=== PATIENT | female | born 1995 | race American Indian/Alaskan Native ===

== ENCOUNTER 2016-10-17 21:23 | Emergency (ER) | payer MEDICAID ==
[2016-10-17 22:12] LABS: Basophils % (Auto) 0.3 % (0.0-1.8); Eosinophils % (Auto) 0.4 % (0.0-4.3); Hematocrit 33.8 % (30.3-42.9); Hemoglobin 11.5 gm/dl (10.1-14.3); Mean Corpuscular HGB Conc 34 % (30-34); Mean Corpuscular Hemoglobin 28 pg (28-32); Mean Corpuscular Volume 82 fl (79-97); Platelet Count 192 K/mm3 (140-440); Red Blood Count 4.15 M/mm3 (3.65-5.03); Red Cell Distribution Width 16.1 % (13.2-15.2); White Blood Count 5.8 K/mm3 (4.5-11.0)
[2016-10-17 22:51] LABS: Bilirubin,Urine NEG (Negative); Blood,Urine MOD (Negative); Ketones,Urine TR mg/dL (Negative); Leukocyte Esterase,Urine SM (Negative); Mucus,Urine FEW /HPF; Nitrite,Urine NEG (Negative); RBC,Urine < 1.0 /HPF (0.0-6.0); Urobilinogen,Urine < 2.0 mg/dL (<2.0)
--- NOTE | 2016-10-18 01:04 | Ultrasound Report ---
FINAL REPORT PROCEDURE: US OB TRANSVAGINAL TECHNIQUE: Real-time transvaginal sonography of the uterus, placenta, amniotic fluid, adnexa, and fetus was performed with image documentation. Measurements were obtained to determine age/size. M-mode Doppler was used to document heartbeat. CPT 23778 HISTORY: vaginal bleeding COMPARISON: No prior studies are available for comparison. FINDINGS: CRL: 6mm, which corresponds to a gestational age of: 6weeks, 3 days. Yolk Sac: Normal. Embryonic Cardiac Activity: 123 beats per minute Gestational Sac: Normal. There is a subchorionic hematoma measuring 3.3 x 1.6 x 1.1 centimeters. Right Ovary: Suboptimal visualization. Left Ovary: There is a 2.4 centimeter cyst. Estimated delivery date: 06/19/2017 Comment: Complete anatomic survey at 18-20 weeks suggested. IMPRESSION: 1. Single living intrauterine gestation at approximately 6 weeks 3 days 2. EDC by US 06/19/2017.
--- NOTE | 2016-10-18 01:04 | Ultrasound Report ---
FINAL REPORT PROCEDURE: US OB TRANSVAGINAL TECHNIQUE: Real-time transvaginal sonography of the uterus, placenta, amniotic fluid, adnexa, and fetus was performed with image documentation. Measurements were obtained to determine age/size. M-mode Doppler was used to document heartbeat. CPT 39963 HISTORY: vaginal bleeding COMPARISON: No prior studies are available for comparison. FINDINGS: CRL: 6mm, which corresponds to a gestational age of: 6weeks, 3 days. Yolk Sac: Normal. Embryonic Cardiac Activity: 123 beats per minute Gestational Sac: Normal. There is a subchorionic hematoma measuring 3.3 x 1.6 x 1.1 centimeters. Right Ovary: Suboptimal visualization. Left Ovary: There is a 2.4 centimeter cyst. Estimated delivery date: 06/19/2017 Comment: Complete anatomic survey at 18-20 weeks suggested. IMPRESSION: 1. Single living intrauterine gestation at approximately 6 weeks 3 days 2. EDC by US 06/19/2017.
[2016-10-18 01:53] VITALS: BP 114/78
--- NOTE | 2016-10-19 00:58 | ED Elopement Review ---
ED Pt Elopement review - Results review Lab results: Laboratory Tests 10/17/16 10/17/16 10/17/16 21:41 21:51 21:51 WBC 5.8 RBC 4.15 Hgb 11.5 Hct 33.8 MCV 82 MCH 28 MCHC 34 RDW 16.1 H Plt Count 192 Lymph % (Auto) 30.5 Terry % (Auto) 6.6 Eos % (Auto) 0.4 Baso % (Auto) 0.3 Lymph # 1.8 Terry # 0.4 Eos # 0.0 Baso # 0.0 Seg Neutrophils % 62.2 Seg Neutrophils # 3.6 HCG, Quant [id number] H Urine Color Yellow Urine Turbidity Clear Urine pH 5.0 Ur Specific [place] 1.032 H Urine Protein 30 mg/dl Urine Glucose (UA) Neg Urine Ketones Tr Urine Blood Mod Urine Nitrite Neg Urine Bilirubin Neg Urine Urobilinogen < 2.0 Ur Leukocyte Esterase Sm Urine WBC (Auto) 1.0 Urine RBC (Auto) < 1.0 U Epithel Cells (Auto) 8.0 Urine Mucus Few Blood Type Antibody Screen SANDER Antibody Screen 10/17/16 21:51 WBC RBC Hgb Hct MCV MCH MCHC RDW Plt Count Lymph % (Auto) Terry % (Auto) Eos % (Auto) Baso % (Auto) Lymph # Terry # Eos # Baso # Seg Neutrophils % Seg Neutrophils # HCG, Quant Urine Color Urine Turbidity Urine pH Ur Specific [place] Urine Protein Urine Glucose (UA) Urine Ketones Urine Blood Urine Nitrite Urine Bilirubin Urine Urobilinogen Ur Leukocyte Esterase Urine WBC (Auto) Urine RBC (Auto) U Epithel Cells (Auto) Urine Mucus Blood Type A POSITIVE Antibody Screen TNR SANDER Antibody Screen Negative - Call Back decision Pt Call Back Decision: Pt to F/U with PMD
== END 2016-10-17 21:52 | disposition left against medical advice (07) ==
LOC: ED 21:23
DX: O20.9 Hemorrhage in early pregnancy, unspecified (principal); Z3A.01 Less than 8 weeks gestation of pregnancy; Z53.21 Procedure and treatment not carried out due to patient leaving prior to being seen by health care provider
CPT/HCPCS: 36415; 76801; 76817; 81001; 84702; 85025; 86850; 86900; 86901